=== PATIENT | female | born 1990 | race Caucasian/White ===

== ENCOUNTER → 2017-03-09 | Outpatient (CLI) | payer BC ==
--- NOTE | 2017-03-10 15:40 | US ---
EXAM DATE: 03/09/17 PATIENT'S AGE: 27 Patient: ADEN MCCORD Facility: [place], [place] Site . Site : 1990 Study: US Head [id number]/[id number] 4:48:35 PM Ordering Physician: Jessy Blackmon Final Report: Indication: Left neck lump. Technique: Grayscale and color-flow Doppler also examination of the left neck lump. Comparison: None. Findings: At the site of the lump is a benign-appearing node measuring 1.6 x 0.8 x 0.4 cm. This node possesses a fatty hilum. The exam is otherwise unremarkable. Impression : Benign-appearing 1.6 x 0.8 x 0.4 cm left neck lymph node. Dictated by Garrett Dalton MD @ Mar 10 2017 11:35AM (Electronic Signature) Report Signed by Proxy. BRETT
== END | disposition home or self-care (01) ==
LOC: MW.US 16:32
PROVIDERS: ATTEND Physician Assistant
DX: R22.1 Localized swelling, mass and lump, neck (principal)
CPT/HCPCS: 76536-LT